=== PATIENT | female | born 1955 | race Caucasian/White ===

== ENCOUNTER 2018-08-31 22:08 | Inpatient (IN) | payer OTHER ==
[~2018-08-31] VITALS: Ht 154.9 cm; Wt 65.8 kg
[2018-08-31 22:10] VITALS: BP_SYST 160
[2018-08-31] MEDS ORDERED: ASPIRIN 81 MG TAB.CHEW PO ONE (22:30)
[2018-08-31] MEDS ORDERED: ONDANSETRON HCL 4 MG/2 ML VIAL IVP ONE (22:30)
[2018-08-31 22:52] LABS: BASOPHILS % (AUTO) 0.5 % (0.0-2.0); EOSINOPHILS # (AUTO) 0.2 K/uL (0.0-0.4); EOSINOPHILS % (AUTO) 2.6 % (0.0-4.0); HEMATOCRIT 34.4 % (36-48); LYMPHOCYTES # (AUTO) 2.2 K/uL (1.0-5.5); LYMPHOCYTES % (AUTO) 34.8 % (20.5-51.5); MEAN CORPUSCULAR HEMOGLOBIN 24 pg (27-31); MEAN CORPUSCULAR HGB CONC 32 % (32-36); MEAN CORPUSCULAR VOLUME 76 fL (79.0-98.0); MONOCYTES # (AUTO) 0.5 K/uL (0.0-1.0); MONOCYTES % (AUTO) 7.2 % (1.7-9.3); NEUTROPHILS # (AUTO) 3.4 K/uL (1.8-7.7); NEUTROPHILS % (AUTO) 54.9 % (40.0-70.0); PLATELET COUNT (AUTO) 320 K/uL (130-430); RED BLOOD CELL COUNT(AUTO) 4.55 MIL/uL (4.2-6.2); RED CELL DISTRIBUTION WIDTH 12.8 % (9.0-15.0); WHITE BLOOD COUNT (AUTO) 6.3 K/uL (4.8-10.8)
[2018-08-31 23:02] LABS: CALCIUM 9.8 mg/dL (8.4-11.0); CREATININE 0.96 mg/dL (0.55-1.30); POTASSIUM 3.4 mmol/L (3.5-5.1)
[2018-08-31 23:07] LABS: PROTHROMBIN TIME 10.1 SECS (9.5-12.5)
[2018-08-31 23:11] LABS: ALBUMIN 3.3 g/dL (3.4-4.8)
[2018-08-31 23:25] LABS: TOTAL BILIRUBIN 0.3 mg/dL (0.0-1.0)
[2018-09-01] MEDS ORDERED: LOSA100T3 PO (00:02)
[2018-09-01] MEDS ORDERED: GLIP10TA11 PO (00:02)
[2018-09-01] MEDS ORDERED: GLU500 PO (00:02)
[2018-09-01] MEDS ORDERED: AMLO2.5T2 PO (00:02)
[2018-09-01 01:03] VITALS: BP_SYST 146
[2018-09-01] MEDS ORDERED: ROSU20TA PO (01:18)
[2018-09-01] MEDS: INSULIN REGULAR, HUMAN 100 UNITS/ML, 10 ML VIAL (novoLIN R) SUBCUT PRN ×3 (06:48→17:04)
[2018-09-01 08:12] VITALS: BP_SYST 123
[2018-09-01 12:12] VITALS: BP_SYST 120
[2018-09-01] MEDS ORDERED: GLUCOSE 15 GM GEL (in 37.5 GM TUBE) PO PRN (12:15)
[2018-09-01] MEDS ORDERED: D5W 1,000 ML IV PRN (12:15)
[2018-09-01] MEDS ORDERED: DEXTROSE 50%-WATER 50 ML DISP.SYRIN IVP PRN (12:15)
[2018-09-01 12:39] LABS: CHOLESTEROL 184 mg/dL (<200); HDL CHOLESTEROL 27 mg/dL (>55); LDL CHOLESTEROL 100 mg/dL (<100); TRIGLYCERIDES 355 mg/dL (30-150)
[2018-09-01 16:24] VITALS: BP_SYST 150
[2018-09-01] MEDS ORDERED: metFORMIN HCL 500 MG TABLET PO SCH (18:00)
[2018-09-01] MEDS ORDERED: ROSUVASTATIN CALCIUM 5 MG/TAB (CRESTOR) PO SCH (21:00)
[2018-09-01] MEDS ORDERED: ATORVASTATIN 20 MG TABLET PO SCH (21:00)
[2018-09-02] MEDS ORDERED: amLODIPine BESYLATE 5 MG TABLET PO SCH (09:00)
[2018-09-02] MEDS ORDERED: LOSARTAN POTASSIUM 50 MG TABLET (COZAAR) PO SCH (09:00)
== END 2018-09-01 18:30 | disposition home or self-care (01) | DRG 313 ==
LOC: SED 22:08 → STU 09-01 00:43
PROVIDERS: ADMIT Internal Medicine Hospice and Palliative Medicine; ATTEND Internal Medicine Hospice and Palliative Medicine
DX: R07.89 Other chest pain (principal); E11.9 Type 2 diabetes mellitus without complications; E78.5 Hyperlipidemia, unspecified; I10 Essential (primary) hypertension; Z98.891 History of uterine scar from previous surgery; Z79.899 Other long term (current) drug therapy; Z88.5 Allergy status to narcotic agent; Z88.4 Allergy status to anesthetic agent
CPT/HCPCS: 36415; 71045; 80053; 80061; 82550-TC; 82962; 83880; 84484; 85025; 85610-TC; 85730-TC; 93005; 93306; 96374; 99285; G0378; J2405

== ENCOUNTER 2021-09-29 13:28 | Emergency (ER) | payer OTHER ==
[~2021-09-29] VITALS: Ht 152.4 cm; Wt 59.0 kg
[~2021-09-29 13:28] MED LIST: AMLO2.5T2 PO; GLIP10TA11 PO; GLU500 PO; LOSA100T3 PO; ROSU20TA2 PO
[2021-09-29 14:48] VITALS: BP_SYST 153
[2021-09-29] MEDS ORDERED: MAG HYDROX/AL HYDROX/SIMETH 30 ML, DICYCLOMINE HCL 20 MG, LIDOCAINE VISCOUS 2% 15ML (PO... PO ONE ×3 (16:00)
[2021-09-29] MEDS ORDERED: DICY10CA13 PO (16:37)
[2021-09-29] MEDS ORDERED: OMEP40CA20 PO (16:37)
[2021-09-29 17:36] LABS: BASOPHILS % (AUTO) 0.5 % (0.0-2.0); EOSINOPHILS # (AUTO) 0.1 K/uL (0.0-0.4); EOSINOPHILS % (AUTO) 1.5 % (0.0-4.0); HEMATOCRIT 32.2 % (36-48); HEMOGLOBIN 10.5 g/dL (12.0-16.0); LYMPHOCYTES # (AUTO) 1.8 K/uL (1.0-5.5); MEAN CORPUSCULAR HEMOGLOBIN 24 pg (27-31); MEAN CORPUSCULAR HGB CONC 33 % (32-36); MEAN CORPUSCULAR VOLUME 73 fL (79.0-98.0); MONOCYTES # (AUTO) 0.3 K/uL (0.0-1.0); MONOCYTES % (AUTO) 5.9 % (1.7-9.3); NEUTROPHILS # (AUTO) 3.3 K/uL (1.8-7.7); NEUTROPHILS % (AUTO) 59.1 % (40.0-70.0); PLATELET COUNT (AUTO) 190 K/uL (130-430); RED CELL DISTRIBUTION WIDTH 14.9 % (9.0-15.0); WHITE BLOOD COUNT (AUTO) 5.5 K/uL (4.8-10.8)
[2021-09-29 17:51] LABS: CREATININE 0.74 mg/dL (0.55-1.30); POTASSIUM 3.6 mmol/L (3.5-5.1)
[2021-09-29 17:57] LABS: ALBUMIN 4.1 g/dL (3.4-4.8); TOTAL BILIRUBIN 0.4 mg/dL (0.0-1.0)
[2021-09-29] MEDS ORDERED: ONDA-8 TL (18:02)
[2021-09-29 18:18] LABS: BILIRUBIN,URINE NEGATIVE (NEGATIVE); BLOOD, URINE NEGATIVE (NEGATIVE); CLARITY/URINE CLEAR (CLEAR); GLUCOSE,URINE TRACE (NEGATIVE); KETONES,URINE NEGATIVE (NEGATIVE); LEUKOCYTE ESTERASE ,URINE NEGATIVE (NEGATIVE); NITRITE, URINE NEGATIVE (NEGATIVE); PH,URINE 5.5 (5.0-8.0); PROTEIN URINE NEGATIVE (NEGATIVE); UROBILINOGEN,URINE 0.2 (0.2-1.0)
[2021-09-29 18:25] VITALS: BP_SYST 123
[2021-09-29 18:30] LABS: COLOR,URINE STRAW (YELLOW)
== END 2021-09-29 18:25 | disposition home or self-care (01) ==
LOC: SED 13:28
DX: K29.70 Gastritis, unspecified, without bleeding (principal); I10 Essential (primary) hypertension; E11.9 Type 2 diabetes mellitus without complications; Z79.899 Other long term (current) drug therapy; Z88.5 Allergy status to narcotic agent; Z88.8 Allergy status to other drugs, medicaments and biological substances
CPT/HCPCS: 36415; 74018; 80053; 81003; 83690; 85025; 93005; 99285; J2001